=== PATIENT | female | born 1950 | race Caucasian/White ===

== ENCOUNTER 2017-10-19 05:28 | Day surgery (SDC) | payer OTHER ==
[~2017-10-19] VITALS: Ht 162.6 cm; Wt 117.9 kg
[~2017-10-19 05:28] MED LIST: EFFEXOR XR150 MG PO; ENABLEX7.5 MG PO
[2017-10-19 06:13] VITALS: BP 185/91
[2017-10-19 17:09] VITALS: BP 164/80
[2017-10-19 20:18] VITALS: BP 139/72
[2017-10-20 00:18] VITALS: BP 129/68
[2017-10-20 03:56] VITALS: BP 141/69
[2017-10-20 06:43] LABS: HEMATOCRIT 37.8 % (36.0-46.0); MCH 29.2 PG (29.0-34.0); MCV 91.3 FL (83-99); PLATELET COUNT 189 K/uL (156-360); RBC DIS.WIDTH-CV 13.5 % (11.8-14.6); RBC DIS.WIDTH-SD 45.6 % (39-53); RED BLOOD COUNT 4.14 M/uL (3.80-5.20); WHITE BLOOD COUNT 8.8 K/uL (4.1-10.2)
[2017-10-20 06:48] LABS: HEMOGLOBIN 12.1 G/DL (11.9-15.5)
[2017-10-20 07:47] VITALS: BP 143/78
[2017-10-20] MEDS ORDERED: ENDOCET 5-3251 EACH PO (11:47)
[2017-10-20 11:49] VITALS: BP 155/78
== END 2017-10-20 15:15 | disposition home or self-care (01) ==
LOC: SDC 05:28 → NUC 07:00 → SDC 07:30 → 2SOUTH 15:50 → 2EAST 15:50 → 2SOUTH 15:50 → ENRESERV 15:55 → 2EAST 16:51 → ENPENDDIS 10-20 → 2EAST 10-20 15:15
PROVIDERS: Surgery
DX: C50.812 Malignant neoplasm of overlapping sites of left female breast (principal); C50.111 Malignant neoplasm of central portion of right female breast; Z17.0 Estrogen receptor positive status [ER+]; Z85.41 Personal history of malignant neoplasm of cervix uteri; Z90.710 Acquired absence of both cervix and uterus; Z85.048 Personal history of other malignant neoplasm of rectum, rectosigmoid junction, and anus; Z90.49 Acquired absence of other specified parts of digestive tract; I10 Essential (primary) hypertension; R73.03 Prediabetes; E66.01 Morbid (severe) obesity due to excess calories; Z68.42 Body mass index [BMI] 45.0-49.9, adult; Z88.8 Allergy status to other drugs, medicaments and biological substances
CPT/HCPCS: 78195; 78999; 85027; 88305; 88307; 88309; 88331; A9541; G0378; J0330; J0690; J1100; J1170; J2250; J2405; J2710; J3010; J3480; J7120; J7643; S0020